=== PATIENT | male | born 1960 | race Caucasian/White ===

== ENCOUNTER 2021-08-13 15:12 | Inpatient (IN) | payer MEDICAID ==
[~2021-08-13] VITALS: Ht 165.1 cm; Wt 74.8 kg
[2021-08-13 16:28] LABS: CHLORIDE 105 mEq/L (98-107)
[2021-08-13 16:32] LABS: ETHANOL BLOOD < 10 mg/dL
[2021-08-13 16:33] LABS: BASOPHILS % 0.9 % (0.0-2.0); EOSINOPHILS % 6.1 % (0.0-5.0); HEMATOCRIT. 29.7 % (42.0-52.0); HEMOGLOBIN. 9.9 g/dL (14.0-18.0); LYMPHOCYTES % 13.9 % (20.0-50.0); MEAN CORPUSCULAR HEMOGLOBIN 32.4 pg (28.0-32.0); MEAN CORPUSCULAR VOLUME 96.8 fL (80.0-94.0); MEAN PLATELET VOLUME 9.5 fl (7.4-10.4); MONOCYTES % 12.3 % (2.0-8.0); NEUTROPHILS % 66.8 % (40.0-76.0); PLATELET 76 x1000/uL (130-400); RED BLOOD CELL COUNT 3.07 mill/uL (4.7-6.1); RED CELL DISTRIBUTION WIDTH 15.3 % (11.6-14.6)
[2021-08-13 16:45] LABS: CLARITY URINE CLEAR (CLEAR); COLOR URINE YELLOW (YELLOW); KETONES URINE NEGATIVE (NEGATIVE); LEUKOCYTE ESTERASE URINE NEGATIVE (NEGATIVE); NITRITE URINE NEGATIVE (NEGATIVE); OCCULT BLOOD URINE NEGATIVE (NEGATIVE); PROTEIN URINE 1+ (NEGATIVE); SPECIFIC GRAVITY URINE 1.011 (1.005-1.030); UROBILINOGEN URINE 0.2 E.U./dL (0.2-1.0)
[2021-08-13 17:04] LABS: *AMPHETAMINES SCREEN URINE PRESUMTIVE POSITIVE (NEGATIVE)
[2021-08-13 17:05] LABS: *BARBITURATES SCREEN URINE NEGATIVE (NEGATIVE); *BENZODIAZEPINES SCREEN URINE NEGATIVE (NEGATIVE); *COCAINE SCREEN URINE NEGATIVE (NEGATIVE); METHADONE URINE SCREEN NEGATIVE (NEGATIVE); OPIATES URINE SCREEN NEGATIVE (NEGATIVE); PHENCYCLIDINE URINE SCREEN NEGATIVE (NEGATIVE)
[2021-08-13 17:06] LABS: CANNABINOID URINE SCREEN NEGATIVE (NEGATIVE)
[2021-08-13] MEDS ORDERED: GUAIFENESIN 200MG/10ML SUGAR FREE UDC PO PRN (18:15)
[2021-08-13] MEDS ORDERED: HYDROCODONE/ACETAMINOPHEN 5/325MG TABLET PO PRN (18:15)
[2021-08-13] MEDS ORDERED: ONDANSETRON HCL 4MG/2ML INJ IV PRN (18:15)
[2021-08-13] MEDS ORDERED: ACETAMINOPHEN 325MG TABLET PO PRN ×2 (18:15)
[2021-08-13] MEDS ORDERED: MAGNESIUM/ALUMINUM HYDROXIDE/SIMETHICONE 30ML UDC PO PRN (18:15)
[2021-08-13] MEDS ORDERED: NALOXONE HCL 0.4MG/ML VIAL IV PRN (18:30)
[2021-08-13] MEDS ORDERED: DEXTROSE 50% WATER 50ML SYRINGE IV PRN (19:00)
[2021-08-13] MEDS ORDERED: ACETAZOLAMIDE 500MG ER CAPSULE PO ONE (19:30)
[2021-08-13] MEDS ORDERED: HYDRALAZINE 20MG/ML VIAL IV PRN (20:15)
[2021-08-13] MEDS: FUROSEMIDE 40MG TABLET PO SCH (21:00)
[2021-08-13] MEDS: INSULIN LISPRO 100 UNITS/ML SUBCUT SCH (21:00)
[2021-08-13] MEDS ORDERED: TIMOLOL MALEATE 0.5% OPHTH DROPS 5ML EACHEYE SCH (21:00)
[2021-08-13] MEDS: BLOOD SUGAR DIAGNOSTIC STRIP TEST SCH (21:00)
[2021-08-13] MEDS ORDERED: IOHEXOL-350 100 ML BOTTLE ONE (21:05)
[2021-08-13] MEDS ORDERED: PILOCARPINE HCL 2% OPHTH DROPS 15ML EACHEYE SCH (22:00)
[2021-08-13] MEDS: ATENOLOL 50 MG TABLET PO SCH (23:49)
[2021-08-14 03:00] VITALS: BP 147/60
[2021-08-14] MEDS ORDERED: FURO-151 PO (04:06)
[2021-08-14] MEDS ORDERED: ATEN-42 MT (04:07)
[2021-08-14] MEDS: BLOOD SUGAR DIAGNOSTIC STRIP TEST SCH ×4 (05:58→21:09)
[2021-08-14] MEDS: BRIMONIDINE 0.2% OPHTH DROPS 5ML EACHEYE SCH ×3 (05:58→21:09)
[2021-08-14] MEDS: INSULIN LISPRO 100 UNITS/ML SUBCUT SCH ×4 (06:03→21:00)
[2021-08-14 08:00] VITALS: BP 144/64
[2021-08-14 08:29] LABS: BASOPHILS % 1.1 % (0.0-2.0); EOSINOPHILS % 4.7 % (0.0-5.0); HEMATOCRIT. 30.6 % (42.0-52.0); HEMOGLOBIN. 10.4 g/dL (14.0-18.0); LYMPHOCYTES % 8.2 % (20.0-50.0); MEAN CORPUSCULAR HEMOGLOBIN 32.8 pg (28.0-32.0); MEAN CORPUSCULAR VOLUME 96.4 fL (80.0-94.0); MEAN PLATELET VOLUME 9.7 fl (7.4-10.4); MONOCYTES % 9.8 % (2.0-8.0); NEUTROPHILS % 76.2 % (40.0-76.0); PLATELET 94 x1000/uL (130-400); RED BLOOD CELL COUNT 3.18 mill/uL (4.7-6.1); RED CELL DISTRIBUTION WIDTH 15.1 % (11.6-14.6)
[2021-08-14] MEDS: FUROSEMIDE 40MG TABLET PO SCH ×2 (08:37→21:08)
[2021-08-14] MEDS: ATENOLOL 50 MG TABLET PO SCH (08:38)
[2021-08-14] MEDS: DORZOLAM/TIMOLOL 2.23/0.68% OPHTH DROPS 10ML EACHEYE SCH ×2 (08:39→21:09)
[2021-08-14 08:51] LABS: PHOSPHORUS 6.3 mg/dL (2.5-4.9)
[2021-08-14 12:00] VITALS: BP 150/65
[2021-08-14 16:00] VITALS: BP 141/65
[2021-08-14 16:49] LABS: HEPATITIS B SURFACE ANTIGEN NEGATIVE
[2021-08-14] MEDS ORDERED: SODIUM POLYSTYRENE SULFONATE 15 G/60 ML BOT PO NR (17:30)
[2021-08-14 20:00] VITALS: BP 146/68
[2021-08-14] MEDS ORDERED: LATANOPROST 0.005% OPHTH DROPS 2.5ML EACHEYE SCH (21:00)
[2021-08-15] VITALS: BP 131/60
[2021-08-15] MEDS: NEOMYCIN-POLYMYXIN-HYDROCORTISONE 1% OTIC SUSP 10ML LEFT EAR SCH ×3 (00:04→12:21)
[2021-08-15 04:00] VITALS: BP 146/63
[2021-08-15] MEDS: BRIMONIDINE 0.2% OPHTH DROPS 5ML EACHEYE SCH ×2 (05:36→14:43)
[2021-08-15] MEDS: BLOOD SUGAR DIAGNOSTIC STRIP TEST SCH ×2 (06:39→12:22)
[2021-08-15 07:13] LABS: BASOPHILS % 0.7 % (0.0-2.0); EOSINOPHILS % 5.4 % (0.0-5.0); HEMATOCRIT. 31.4 % (42.0-52.0); HEMOGLOBIN. 10.5 g/dL (14.0-18.0); LYMPHOCYTES % 13.3 % (20.0-50.0); MEAN CORPUSCULAR HEMOGLOBIN 32.7 pg (28.0-32.0); MEAN CORPUSCULAR VOLUME 97.7 fL (80.0-94.0); MEAN PLATELET VOLUME 9.9 fl (7.4-10.4); NEUTROPHILS % 67.6 % (40.0-76.0); PLATELET 96 x1000/uL (130-400); RED BLOOD CELL COUNT 3.22 mill/uL (4.7-6.1); RED CELL DISTRIBUTION WIDTH 15.5 % (11.6-14.6)
[2021-08-15] MEDS: INSULIN LISPRO 100 UNITS/ML SUBCUT SCH ×2 (07:50→12:22)
[2021-08-15 08:00] VITALS: BP 150/75
[2021-08-15] MEDS: ATENOLOL 50 MG TABLET PO SCH (08:16)
[2021-08-15] MEDS: FUROSEMIDE 40MG TABLET PO SCH (08:16)
[2021-08-15] MEDS: DORZOLAM/TIMOLOL 2.23/0.68% OPHTH DROPS 10ML EACHEYE SCH (09:07)
[2021-08-15 12:00] VITALS: BP 127/62
[2021-08-15] MEDS ORDERED: XALAO EACHEYE (13:58)
[2021-08-15] MEDS ORDERED: DORZ10DR12 EACHEYE (13:58)
[2021-08-15] MEDS ORDERED: BRIM.2 EACHEYE (13:58)
[2021-08-15 14:18] VITALS: BP 127/62
[2021-08-15] MEDS ORDERED: CALCIUM ACETATE 667MG CAPSULE PO SCH (17:50)
== END 2021-08-15 16:09 | disposition home or self-care (01) | DRG 384 ==
LOC: ER 15:12 → EDBEDREQ 16:08 → EDBEDREQTM 16:08 → EDBEDREQSVC 16:08 → SUPCPDRO 18:13 → EDBEDREQ 21:16 → 6WST 21:17 → EDBEDREQSVC 21:18 → EDBEDREQTM 21:18 → EDBEDREQ 21:18 → EDBEDREQSVC 08-14 01:25 → ENRESERV 08-14 02:00
PROVIDERS: ADMIT Internal Medicine; ATTEND Internal Medicine
PROC: 5A1D70Z Performance of Urinary Filtration, Intermittent, Less than 6 Hours Per Day (ICD-10-PCS; principal; 2021-08-14)
DX: S00.412A Abrasion of left ear, initial encounter (principal); D61.818 Other pancytopenia; I12.0 Hypertensive chronic kidney disease with stage 5 chronic kidney disease or end stage renal disease; E87.2 Acidosis; E83.39 Other disorders of phosphorus metabolism; N18.6 End stage renal disease; R42 Dizziness and giddiness; E11.22 Type 2 diabetes mellitus with diabetic chronic kidney disease; K70.30 Alcoholic cirrhosis of liver without ascites; H57.02 Anisocoria; E87.5 Hyperkalemia; Z20.822 Contact with and (suspected) exposure to COVID-19; X58.XXXA Exposure to other specified factors, initial encounter; S01.312A Laceration without foreign body of left ear, initial encounter; Z99.2 Dependence on renal dialysis; Z56.0 Unemployment, unspecified; Y93.89 Activity, other specified; Y92.89 Other specified places as the place of occurrence of the external cause; Y99.8 Other external cause status
CPT/HCPCS: 36415; 70496; 70498; 71045; 80048; 80053; 80305; 80320; 81003; 82550; 82962; 83036; 83735; 84100; 84484; 85025; 86705; 86709; 86803; 87340; 87426; 93005; 99285; J1815; J2405; Q9967; G0480